=== PATIENT | female | born 2000 | race African-American/Black ===

== ENCOUNTER 2021-10-07 19:44 | Emergency (ER) | payer OTHER ==
[2021-10-07 19:52] VITALS: BP 160/91; PULSE 116; TEMP 98.3; BMI 28.1
== END 2021-10-07 20:29 | disposition home or self-care (01) ==
LOC: JER 19:44
DX: L42 Pityriasis rosea (principal)
CPT/HCPCS: 99281-25

== ENCOUNTER 2021-10-26 09:56 | Emergency (ER) | payer OTHER ==
[2021-10-26 10:44] VITALS: BP 126/86; PULSE 93; TEMP 98.2; BMI 25.8
== END 2021-10-26 11:29 | disposition home or self-care (01) ==
LOC: JERFT 09:56
PROC: 3E033NZ Introduction of Analgesics, Hypnotics, Sedatives into Peripheral Vein, Percutaneous Approach (ICD-10-PCS; principal; 2021-10-26)
DX: L42 Pityriasis rosea (principal)
CPT/HCPCS: 99283-25